=== PATIENT | female | born 1965 | race African-American/Black ===

== ENCOUNTER 2016-09-30 13:43 | Outpatient (CLI) ==
[2016-06-05 12:43] VITALS: BMI 40.7
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
== END 2016-09-30 13:44 | disposition home or self-care (01) ==
LOC: RAD 13:43
PROVIDERS: ATTEND Nurse Practitioner Family
DX: M79.645 Pain in left finger(s) (principal); M79.89 Other specified soft tissue disorders

== ENCOUNTER 2016-10-18 09:44 | Emergency (ER) ==
[2016-10-18 09:53] VITALS: BP 144/105; TEMP 99.7; BMI 45.3
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
[2016-10-18] MEDS ORDERED: NORCO 5-325 PO STA (11:16)
== END 2016-10-18 11:46 | disposition home or self-care (01) ==
LOC: ED 09:44
DX: M54.2 Cervicalgia (principal); M25.571 Pain in right ankle and joints of right foot; R07.89 Other chest pain; M54.5 Low back pain; R16.0 Hepatomegaly, not elsewhere classified; N85.8 Other specified noninflammatory disorders of uterus; V89.2XXA Person injured in unspecified motor-vehicle accident, traffic, initial encounter
CPT/HCPCS: 99283

== ENCOUNTER 2016-10-27 08:27 | Outpatient (CLI) ==
--- NOTE | 2016-10-27 09:09 | US ---
Exam: Limited ultrasonographic evaluation of the abdomen. Comparison: 04/10/2015. Reason for exam: Liver disease unspecified. FINDINGS: The liver measures approximately 11.87 cm in length with normal appearing echotexture and no intrahepatic ductal dilatation. There is normal antegrade portal venous flow. In the right hep atic lobe there is a 4.98 x 5.35 x 6.23 cm hyperechoic mass that is similar in echotexture when comp ared to the previous exam. The gallbladder is unremarkable without ultrasonographic evidence of intraluminal stone, sludge, or polyp. The gallbladder wall measures 0.26 cm. The common bile duct is unremarkable without intraluminal stone or polyp. The common bile duct nette ures 0.40 cm in diameter. The partially imaged pancreas is unremarkable without obvious pancreatic ductal dilatation or abnormal echotexture. The right kidney measures approximately 10.58 x 4.64 x 3.81 cm with normal appearing echotexture, no hydronephrosis, and no nephrolithiasis. Impression: 1. 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 If clinical concern exists for malignancy, MRI or three-phase liver protocol may be performed. 2. Otherwise, no acute ultrasonographic findings are seen within the imaged portions of the abdomen
== END 2016-10-27 08:28 | disposition home or self-care (01) ==
LOC: RAD 08:27
PROVIDERS: ATTEND Nurse Practitioner Family
DX: K76.9 Liver disease, unspecified (principal)

== ENCOUNTER 2016-10-27 08:52 | Emergency (ER) ==
[2016-10-27 09:05] VITALS: BP 133/85; TEMP 98.3; BMI 45.4
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
--- NOTE | 2016-10-27 10:21 | CT ---
EXAM: CT lumbar spine without contrast. HISTORY: Back pain. Right sciatica. COMPARISON: 01/09/2015. TECHNIQUE: Multiple axial images of the lumbar spine were obtained without intravenous contrast. I mages were reformatted in the sagittal and coronal planes. FINDINGS: There is approximately 0.2 cm retrolisthesis of L5 on S1. Alignment is otherwise normal. Vertebral body heights are normal without fracture. There is mild loss of disc height at L4-5 and moderate loss of disc height at L5, S1 with associated endplate sclerosis and cystic change. No ac [place] fracture detected. Paravertebral soft tissues are without acute abnormality. Enlarged myomatou s uterus is partially imaged. T12-L1: No neural compromise. L1-2: Minimal disc bulge and facet arthropathy with mild left neural foraminal narrowing. L2-3: Disc osteophyte formation and facet arthropathy with minimal neural foraminal narrowing. L3-4: Disc osteophyte formation and facet arthropathy with flattening of the ventral thecal sac and mild neural foraminal narrowing. L4-5: Disc osteophyte formation and facet arthropathy with mild central canal stenosis and moderate neural foraminal narrowing. L5-S1: Disc osteophyte formation and facet arthropathy with moderate to severe bilateral neural for aminal narrowing. Since the prior study, there has been no significant interval change appear IMPRESSION: 1. No acute fracture. 2. Stable multilevel degenerative changes.
== END 2016-10-27 10:40 | disposition home or self-care (01) ==
LOC: ED 08:52
DX: S39.012A Strain of muscle, fascia and tendon of lower back, initial encounter (principal); V89.2XXA Person injured in unspecified motor-vehicle accident, traffic, initial encounter; K76.9 Liver disease, unspecified
CPT/HCPCS: 99282

== ENCOUNTER 2016-11-01 07:23 | Outpatient (CLI) ==
[2016-11-01 07:55] LABS: CREATININE 0.79 mg/dL (0.60-1.30)
--- NOTE | 2016-11-01 11:49 | MRI ---
EXAM: MRI abdomen without and with contrast HISTORY: Hepatomegaly not elsewhere classified, blood filled mass on liver TECHNIQUE: Multiplanar, multisequence without and following the administration of intravenous Omnis can, 20 mL using a hepatic protocol COMPARISON: Abdominal sonogram from 10/26/2016 FINDINGS: The heart is mildly enlarged. No pericardial or pleural effusions are detected. There is no evidence of hepatic steatosis. There is a mass in the central liver measuring 6.1 x 5.0 cm. This has increased T2 signal and peripheral nodular interrupted enhancement. The lesion has d ecreased T1 signal prior to administration of contrast. No other hepatic lesions are evident. The portal and hepatic veins are patent. The spleen has normal size and signal. The gallbladder is pre sent and free of intraluminal filling defects. The common bile duct is nondilated. There is eviden ce of pancreatic divisum. No pancreatic side branch duct dilatation is appreciated. There are no d uodenal diverticula. There are two simple acquired left renal cysts. The kidneys are otherwise normal. The renal collec ting systems are nondilated. The adrenal glands are normal. The pancreas maintains normal bright T1 signal and enhances normally. The visible intestines have normal signal caliber without evidence of obstruction or acute inflammat ion. The abdominal aorta has normal caliber and flow signal. No lymphadenopathy or ascites are [place] dent. The bone marrow signal intensity is within normal limits. IMPRESSION: 1. Hemangioma, central liver measuring 6.1 x 5.0 cm. 2. Pancreatic divisum. 3. Two simple acquired left renal cysts.
== END 2016-11-01 07:24 | disposition home or self-care (01) ==
LOC: RAD 07:23
PROVIDERS: ATTEND Nurse Practitioner Family
DX: R16.0 Hepatomegaly, not elsewhere classified (principal)
CPT/HCPCS: 36415; 82565

== ENCOUNTER 2016-11-30 08:52 | Outpatient (CLI) ==
--- NOTE | 2016-11-30 13:23 | MRI ---
EXAM: Lumbar spine MRI without contrast. HISTORY: Lumbosacral radiculopathy. COMPARISON: Lumbar spine CT scan 10/27/2016 and lumbar spine MRI 01/09/2015. TECHNIQUE: Multiplanar, multisequence MR images were acquired of the lumbar spine without contrast. FINDINGS: Five lumbar-type vertebra are present. The lumbar vertebra are normal in height. Alignm ent is near anatomic. There is 1.5 mm anterolisthesis of L4 on L5 and 2.5 mm retrolisthesis of L5 o n S1. The superior endplate of S1 is smaller than the inferior endplate of L5. Bone marrow signal is mildly heterogeneous with increased dark T1 and T2 bone marrow signal that is slightly more than is typical. This is more apparent than the previous MRI and may represent increased red marrow tamra nversion and less likely more aggressive disease processes. Marginal osteophytes are present and th ere is peripheral disc desiccation at L3-4. At L4-5, there is osteophytosis with mild disc space na rrowing and mild to moderate degenerative endplate changes. At L5-S1, there is osteophytosis with m oderate to marked disc space narrowing, disc desiccation and moderately extensive degenerative endpl ate changes with reactive dark STIR signal sclerosis along the endplates. There are small chronic S chmorl's nodes at L1, L4, L5 and S1. The degenerative endplate changes have moderately progressed at L5-S1 and mildly progressed at L4-5 compared to previously. There is osteoarthritis of the posteri or spinous processes. Conus medullaris ends at T12-L1 and has normal signal intensity. The partially visualized liver, spleen and right kidney are unremarkable. Simple left renal cysts a re present. Respiratory motion limits evaluation of the solid organs. The uterus is mildly enlarge d with a lobular contour and has several nodular dark T1 and T2 signal lesions consistent with fibro ids. There is a left sacroiliac osteoarthrosis. T12-L1: The intervertebral disc is normal. L1-2: There is a minor disc bulge that is asymmetric to the left and mild left neural foraminal hermilo nosis. L2-3: There is a mild disc bulge with a small right paracentral disc protrusion and mild bilateral hypertrophic facet arthropathy and ligamentum flavum hypertrophy. There is mild left and minor righ t neural foraminal stenosis. L3-4: There is a mild disc bulge and mild bilateral hypertrophic facet arthropathy and ligamentum f lavum hypertrophy. This causes minor bilateral foraminal stenosis. L4-5: There is a mild disc bulge that is greatest posteriorly with a posterior plate osteophytes an d a probable small left paracentral disc protrusion. This mildly effaces the ventral thecal sac. M oderate bilateral hypertrophic facet arthropathy and ligamentum flavum hypertrophy is present. Ther e is mild to moderate bilateral neural foraminal stenosis, greater on the left and mild spinal steno sis. AP diameter of the thecal sac is 8.6 mm. L5-S1: There is a diffuse disc osteophyte complex that contacts the anteromedial S1 nerves bilatera lly and narrows both neural foramina. Mild bilateral hypertrophic facet arthropathy is present and there is a possible small right paracentral disc protrusion. There is severe bilateral foraminal st enosis with encroachment on both L5 nerves. IMPRESSION: 1. Mild to moderate lumbar degenerative spondylosis with mild spinal stenosis and L4-5. 2. Dorsal spondylotic ridge L4-5 with small left paracentral disc protrusion. 3. Small right paracentral disc protrusion L2-3 and probable small right paracentral disc protrusio n L5-S1. 4. Mild to moderate bilateral L4-5 and severe bilateral L5-S1 neural foraminal stenosis with encroa chment on both of five nerves. 5. Enlarged fibroid uterus.
== END 2016-11-30 08:53 | disposition home or self-care (01) ==
LOC: RAD 08:52
PROVIDERS: ATTEND Nurse Practitioner Family
DX: M54.17 Radiculopathy, lumbosacral region (principal)

== ENCOUNTER 2017-02-11 11:41 | Outpatient (CLI) | payer OTHER ==
[2017-02-11 13:06] LABS: BASOPHILS % (AUTO) 0.6 % (0.0-3.0); EOSINOPHILS # (AUTO) 0.1 K/ul (0.0-0.7); EOSINOPHILS % (AUTO) 2.3 % (0.0-7.0); HEMATOCRIT 39.7 % (37.0-47.0); HEMOGLOBIN 12.4 g/dl (12.0-16.0); IMMATURE GRANULOCYTE % (AUTO) 0.2 % (0.0-5.0); LYMPHOCYTES # (AUTO) 1.6 K/uL (0.60-3.4); LYMPHOCYTES % (AUTO) 31.7 (10.0-50.0); MEAN CORPUSCULAR HEMOGLOBIN 27.1 pg (27.0-31.0); MEAN CORPUSCULAR HGB CONC 31.2 (31.8-35.4); MEAN CORPUSCULAR VOLUME 86.9 fl (81.0-99.0); MONOCYTES # (AUTO) 0.4 K/uL (0.4-2.0); MONOCYTES % (AUTO) 8.5 (0-10); NEUTROPHILS # (AUTO) 2.9 K/ul (2.0-6.9); NEUTROPHILS % (AUTO) 56.7; PLATELET COUNT 308 10^3/uL (140-440); RED BLOOD COUNT 4.57 10^6/ul (4.20-5.40); WHITE BLOOD COUNT 5.15 K/ul (4.6-10.2)
[2017-02-11 13:52] LABS: ALBUMIN 3.6 g/dL (3.4-5.0); ALBUMIN/GLOBULIN RATIO 0.95; BILIRUBIN,TOTAL 0.35 mg/dL (0.00-1.20); BUN/CREATININE RATIO 14.94; CALCIUM 9.7 mg/dL (8.2-10.2); CREATININE 0.87 mg/dL (0.60-1.30); TOTAL PROTEIN 7.4 g/dL (6.4-8.2)
== END 2017-02-11 11:42 | disposition home or self-care (01) ==
LOC: LAB 11:41
PROVIDERS: ATTEND Nurse Practitioner Family
DX: I10 Essential (primary) hypertension (principal); E66.3 Overweight
CPT/HCPCS: 36415; 80053; 80061; 84443; 85025

== ENCOUNTER 2017-06-17 16:07 | Outpatient (CLI) ==
[2017-06-17 16:09] LABS: FLU INTERNAL QC INTERNAL QC VALID; RAPID FLU A POSITIVE (NEGATIVE); RAPID FLU B NEGATIVE (NEGATIVE)
== END 2017-06-17 16:08 | disposition home or self-care (01) ==
LOC: LAB 16:07
PROVIDERS: ATTEND Nurse Practitioner Family
DX: R05 Cough (principal); J02.9 Acute pharyngitis, unspecified
CPT/HCPCS: 87651; 87804; 87880

== ENCOUNTER 2017-07-12 17:03 | Outpatient (CLI) | END 2017-07-12 17:04 | disposition home or self-care (01) | LOC: LAB 17:03 | PROVIDERS: ATTEND Nurse Practitioner Family | DX: R05 Cough (principal) | CPT/HCPCS: 87502 ==

== ENCOUNTER 2018-07-31 13:42 | Emergency (ER) | payer OTHER ==
[2018-07-31 13:49] VITALS: BP 137/85; TEMP 97.6; BMI 40.7
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
== END 2018-07-31 14:52 | disposition home or self-care (01) ==
LOC: ED 13:42
DX: M54.5 Low back pain (principal); V89.0XXA Person injured in unspecified motor-vehicle accident, nontraffic, initial encounter
CPT/HCPCS: 99283

== ENCOUNTER 2018-08-02 12:46 | Outpatient (CLI) | payer OTHER ==
--- NOTE | 2018-08-02 15:36 | DI ---
EXAM: Right hip two-view HISTORY: Pain in right hip COMPARISON: 04/08/2012 FINDINGS: No fracture or dislocation. Mild osteoarthritis right hip with small osteophyte formation femoral head and mild joint space narrowing. Mild enthesopathy greater trochanter. IMPERSSION: Mild osteoarthritis right hip.
--- NOTE | 2018-08-02 15:38 | DI ---
EXAM: Right knee four view HISTORY: Pain in right knee COMPARISON: 06/12/2012 FINDINGS: No fracture or dislocation. Small tricompartmental osteophytes. Lucency about the posteri or patella likely chondromalacia patella. The medial, lateral, and patellofemoral compartments are n ormal in height. No joint effusion. Mild quadriceps tendon enthesopathy. IMPERSSION: Mild tricompartmental osteoarthritis. Chondromalacia patella.
== END 2018-08-02 12:47 | disposition home or self-care (01) ==
LOC: RAD 12:46
PROVIDERS: ATTEND Nurse Practitioner Family
DX: M25.551 Pain in right hip (principal); M25.561 Pain in right knee; G89.29 Other chronic pain

== ENCOUNTER 2018-08-21 15:27 | Outpatient (CLI) | payer OTHER | END 2018-08-21 15:28 | disposition home or self-care (01) | LOC: RHC-LAB 15:27 | PROVIDERS: ATTEND Nurse Practitioner Family | DX: R05 Cough (principal); J02.9 Acute pharyngitis, unspecified | CPT/HCPCS: 87502; 87651 ==

== ENCOUNTER 2018-11-28 09:30 | Outpatient (CLI) ==
--- NOTE | 2018-11-29 09:36 | MAMMO ---
EXAM: Bilateral digital screening mammogram (2-D and 3-D) History: Screening Comparison: Bilateral mammogram 03/05/2016 Findings: MLO and CC views of bilateral breasts demonstrate scattered fibroglandular breast parenchy ma. CAD was reviewed by the radiologist. Tomosynthesis was performed. There are no dominant masses , no suspicious microcalcifications and no architectural distortions Impression: Stable negative mammogram. Recommend followup routine screening mammography in 1 year. BI-RADS 1, negative
== END 2018-11-28 09:31 | disposition home or self-care (01) ==
LOC: RAD 09:30
PROVIDERS: ATTEND Nurse Practitioner Family
DX: Z12.31 Encounter for screening mammogram for malignant neoplasm of breast (principal)

== ENCOUNTER 2019-01-03 11:17 | Emergency (ER) ==
[2019-01-03 11:22] VITALS: BP 135/88; TEMP 98.7; BMI 41.8
[2019-01-03] MEDS ORDERED: TORADOL IM STA (12:58)
--- NOTE | 2019-01-03 13:01 | ED.PDOC ---
General ED Provider: Dr. RAÚL CALDERON Chief Complaint: Abdominal Pain Stated Complaint: abdominal pain and diarrhea Time Seen by Physician: 11:30 Mode of Arrival: Walk-In Information Source: Patient Exam Limitations: No limitations Primary Care Provider: ROSA GOMES Nursing and Triage Documentation Reviewed and Agree: Yes Does patient meet sepsis criteria?: No System Inflammatory Response Syndrome: Not Applicable Sepsis Protocol: For patient's 13 years and over: Temp is 96.8 and below OR 101 and greater Pulse >90 BPM Resp >20/minute Acutely Altered Mental Status Are patient's symptoms suggestive of a new infection, such as: -Pneumonia -Skin, Soft Tissue -Endocarditis -UTI -Bone, Joint Infection -Implantable Device -Acute Abdominal Infection -Wound Infection -Meningitis -Blood Stream Catheter Infection -Unknown GI Complaint Exam - Abdominal Pain Complaint/Exam Onset: Gradual Duration: 1 day Symptoms Are: Still present Timing: Intermittent Initial Severity: Moderate Current Severity: Moderate Location of Pain: Diffuse Radiates To: Denies: Chest, Back, Flank, LLQ, RLQ, Inguinal Character: Reports: Dull Aggravating: Reports: None Alleviating: Reports: None Associated Signs and Symptoms: Reports: Diarrhea. Denies: Diaphoresis, Fever, Cough, Chest pain, Dizziness, Back pain, Constipation, Blood in stool, Dysuria, Urinary frequency, Decreased urine output, Decreased appetite, Vaginal bleeding , Vaginal discharge, Nausea, Vomiting, Sore throat, Decreased activity AAA Risk Factors: Reports: None Cardiac Risk Factors: Reports: None Ectopic Risk Factors: Reports: None Ovarian Torsion Risk Factors: Reports: None Surgical Obstruction Risk Factors: Reports: None Related Surgical History: Reports: None Patient Rh Status: Unknown Abdominal Findings: Present: None Differential Diagnoses: Appendicitis, Bowel Obstruction, Constipation, Gastroenteritis Review of Systems - Review Of Systems Constitutional: Reports: No symptoms Eyes: Reports: No symptoms Ears, Nose, Mouth, Throat: Reports: No symptoms Respiratory: Reports: No symptoms Cardiac: Reports: No symptoms GI: Reports: Abdominal pain, Diarrhea : Reports: No symptoms Musculoskeletal: Reports: No symptoms Skin: Reports: No symptoms Neurological: Reports: No symptoms Endocrine: Reports: No symptoms Hematologic/Lymphatic: Reports: No symptoms All Other Systems: Reviewed and Negative Past Medical History - Past Medical History Previously Healthy: Yes Endocrine: Reports: None Cardiovascular: Reports: None Respiratory: Reports: None Hematological: Reports: None Gastrointestinal: Reports: None Genitourinary: Reports: None Neuro/Psych: Reports: None Musculoskeletal: Reports: Back Pain, Joint Pain Cancer: Reports: None Last Menstrual Period: 2 years - Surgical History General Surgical History: Reports: Tubal ligation, Back Surgery (lt knee replacement) - Family History Family History: Reports: Unknown - Social History Smoking Status: Never smoker Hx Substance Use: No Alcohol Screening: Occasionally Physical Exam - Physical Exam Appearance: Well-appearing, No pain distress, Well-nourished Eyes: COBY, EOMI, Conjunctiva clear ENT: Ears normal, Nose normal, Oropharynx normal Respiratory: Airway patent, Breath sounds clear, Breath sounds equal, Respirations nonlabored Cardiovascular: RRR, Pulses normal, No rub, No murmur GI/: Soft, Nontender, No masses, Bowel sounds normal, No Organomegaly Musculoskeletal: Normal strength, ROM intact, No edema, No calf tenderness Skin: Warm, Dry, Normal color Neurological: Sensation intact, Motor intact, Reflexes intact, Cranial nerves intact, Alert, Oriented Psychiatric: Affect appropriate, Mood appropriate Re-Evaluation - Re-Evaluation Time of Re-Evaluation: 13:00 Status: Improved Vital Signs Stable: Yes Pain Level: 0 Appearance: NAD Lungs: Clear Skin: Warm and Dry Neuro: Alert and Oriented X3 CV: RRR Critical Care Note - Critical Care Note Total Time (mins): 0 Course - Course Hematology/Chemistry: 01/03/19 11:40 01/03/19 11:40 Orders, Labs, Meds: Lab Review 01/03/19 01/03/19 01/03/19 11:40 11:40 11:40 WBC 4.62 RBC 4.31 Hgb 12.3 Hct 39.0 MCV 90.5 MCH 28.5 MCHC 31.5 L RDW Coeff of [place] 13.5 Plt Count 285 Immature Gran % (Auto) 0.2 Neut % (Auto) 57.4 Lymph % (Auto) 32.7 [place] % (Auto) 8.2 Eos % (Auto) 1.1 Baso % (Auto) 0.4 Immature Gran # (Auto) 0.0 Neut # (Auto) 2.7 Lymph # (Auto) 1.5 [place] # (Auto) 0.4 Eos # (Auto) 0.1 Baso # (Auto) 0.0 Sodium 143.7 Potassium 4.05 Chloride 107.1 H Carbon Dioxide 28.3 Anion Gap 12.35 BUN 12.5 Creatinine 1.11 Estimated GFR (MDRD) 62.00 BUN/Creatinine Ratio 11.26 Glucose 93.5 Calcium 9.21 Total Bilirubin 0.39 AST 27.2 ALT 17.0 Alkaline Phosphatase 89.6 Total Protein 7.17 Albumin 4.11 Globulin 3.06 Albumin/Globulin Ratio 1.34 Urine Color Yellow Urine Clarity Clear Urine pH 5.0 Ur Specific [place] 1.025 Urine Protein Negative Urine Glucose (UA) Negative Urine Ketones Trace Urine Blood Negative Urine Nitrite Negative Urine Bilirubin Negative Urine Urobilinogen 0.2 Ur Leukocyte Esterase Negative Orders Category Date Time Status C-DIFF MONITORING (NURSING) BID CARE 01/03/19 11:29 Active CBC W/ AUTO DIFF Stat LAB 01/03/19 11:40 Completed COMPREHENSIVE METABOLIC PANEL Stat LAB 01/03/19 11:40 Completed URINALYSIS C & S IF INDICATED Stat LAB 01/03/19 11:40 Completed c-diff [C. DIFFICILE] Routine LAB 01/03/19 11:29 Uncollected Ketorolac Tromethamine [Toradol] MEDS 01/03/19 12:58 Stat 60 mg IM ONCE STA CT ABDOMEN/PELVIS WO CONTRAST Stat RADS 01/03/19 11:29 Taken Medications Generic Name Dose Route Start Last Admin Trade Name Freq PRN Reason Stop Dose Admin Ketorolac Tromethamine 60 mg 01/03/19 12:58 Toradol IM 01/03/19 12:59 ONCE STA Vital Signs: Temp Pulse Resp BP Pulse Ox 01/03/19 11:17 98.7 F 68 16 135/88 98 Departure - Departure Time of Disposition: 13:30 Disposition: HOME SELF-CARE Discharge Problem: Abdominal pain Instructions: Abdominal Pain (ED) Condition: Good Pt referred to PMD for follow-up: Yes IPMP verified?: No Additional Instructions: Please call your Family Physician as soon as possible to schedule a follow-up appointment. Allergies/Adverse Reactions: Allergies Sulfa (Sulfonamide Antibiotics) Allergy (Intermediate, Verified 01/03/19 11:30) Rash lisinopril Adverse Reaction (Verified 01/03/19 11:30) Home Medications: Ambulatory Orders Multivitamin 1 cap PO DAILY 06/05/16 Hydrocodone/Acetaminophen [[place] 7.5-325 Tablet] 1 each PO TID PRN 11/22/18 Disposition Discussed With: Patient
--- NOTE | 2019-01-03 13:06 | CT ---
EXAM: CT ABDOMEN AND PELVIS HISTORY: Mid abdominal pain and diarrhea TECHNIQUE: CT abdomen and pelvis without intravenous contrast. Images were reconstructed using 3 mm section thickness. Reformations were prepared. COMPARISON: None FINDINGS: Liver demonstrates a 6.9 x 6.8 cm axial dimension low attenuation lesion of the right hepatic lobe. Similar finding has been described on prior MRI abdomen dated 11/01/2016. Liver and spleen are other amezcua unremarkable. Gallbladder, pancreas and adrenal glands are within normal limits. Kidneys and v isualized ureters are within limits. Normal abdominal aorta. Postop changes of the stomach are present. What probably represents the appendix has no evidence of inflammation. No bowel obstruction. There is semisolid stool within the distal rectosigmoid which c an be consistent with the patient's history of diarrhea. There is no small or large bowel wall thick ening identified. Large lobulated uterus places mass effect on the urinary bladder suggesting multip le fibroids. There is no ascites or inflammatory infiltration of the abdominal fat. There is a fatty umbilical hernia with transverse neck of 15 mm likely of no current clinical signifi cance. Bones reveal severe degenerative disc disease of the lumbosacral junction. Lung bases are fr ee of infiltrate. There is no pneumoperitoneum IMPRESSION: 1. Findings which can be consistent with the patient's given history of diarrhea. The bowel gas pat tern appears grossly normal. No definite small or large bowel wall thickening to indicate current CT evidence of active enterocolitis. 2. Liver demonstrates a 6.9 x 6.8 cm axial dimension low attenuation lesion of the right hepatic lob e. Similar finding has been described on prior MRI abdomen dated 11/01/2016. 3. Postop changes of the stomach. 4. Enlarged lobulated uterus suggesting multiple fibroids. Consider follow-up pelvic ultrasound.
== END 2019-01-03 13:28 | disposition home or self-care (01) ==
LOC: ED 11:17
DX: R10.9 Unspecified abdominal pain (principal); R19.7 Diarrhea, unspecified
CPT/HCPCS: 36415; 80053; 81001; 85025; 96372; 99283

== ENCOUNTER 2019-03-02 07:29 | Outpatient (CLI) ==
--- NOTE | 2019-03-02 13:10 | CT ---
EXAM: CTA CHEST HISTORY: Elevated D-dimer, shortness of breath TECHNIQUE: CTA chest with intravenous contrast. PE protocol. Multiplanar images were provided with 3-D reconstructions. FINDINGS: No comparison. No pulmonary arterial filling defect is seen. Minimal atherosclerotic disease. Heart size is within normal limits. No significant pericardial fluid is seen. No mediastinal or hilar lymphadenopathy. There is a subtle infiltrate in the left lower lobe. Lungs are otherwise clear. Normal vascularity. No pleural fluid or pneumothorax. The bones reveal osteophytic spurring of the thoracic spine. Postop changes of the stomach are noted . IMPRESSION: 1. No pulmonary arterial thromboembolism. 2. Subtle left lower lobe density may represent mild pneumonia. 3. Minimal atherosclerosis. 4. Postop changes of the stomach incidentally noted.
== END 2019-03-02 07:30 | disposition home or self-care (01) ==
LOC: RAD 07:29
PROVIDERS: ATTEND Nurse Practitioner Family
DX: R79.89 Other specified abnormal findings of blood chemistry (principal); Z87.898 Personal history of other specified conditions